=== PATIENT | male | born 1945 | race Caucasian/White ===

== ENCOUNTER 2021-05-15 12:40 | Emergency (ER) | payer SELFPAY ==
[~2021-05-15] VITALS: Ht 182.9 cm; Wt 84.0 kg
[2021-05-15] MEDS ORDERED: niCARdipine INJ. IV ONE (12:58)
[2021-05-15] MEDS ORDERED: IV NORMAL SALINE 250ML 250 ML ONE (12:59)
[2021-05-15] MEDS ORDERED: VECURONIUM 10 MG VIAL. IV ONE (13:00)
[2021-05-15] MEDS ORDERED: SUCCINYLCHOLINE 200 MG/10 ML VIAL. ONE ×2 (13:00→13:08)
[2021-05-15] MEDS ORDERED: ETOMIDATE 40 MG/20 ML VIAL. ONE (13:00)
[2021-05-15] MEDS ORDERED: MIDAZOLAM HCL PF 5 MG/5 ML VIAL. ONE (13:00)
--- NOTE | 2021-05-15 13:06 | RAD ---
CT scan of the head without contrast 05/15/2021 Clinical History: Altered mental status. Technique: Unenhanced, contiguous, 5 mm axial sections were obtained through the head. One or more of the following individualized dose reduction techniques were utilized for this study: 1. Automated exposure control. 2. Adjustment of the mA and/or kV according to patient size. 3. Use of iterative reconstruction technique. Findings: There is generalized parenchymal atrophy. Areas of decreased attenuation are seen within t he periventricular and subcortical white matter of both cerebral hemispheres consistent with areas of small vessel ischemic disease. An acute parenchymal hematoma is seen involving the midline cerebellu m, left greater than right. This measures 6 cm in greatest diameter. There is surrounding edema and a ssociated mass effect. Acute interventricular hemorrhage is seen within the third ventricle, aqueduct of Sylvius and fourth ventricle. No hydrocephalus is seen at this time. No extra-axial fluid collect ion is noted. No skull fracture is seen. IMPRESSION: 6 cm acute hematoma is seen involving the cerebellum, left greater than right. There is s urrounding edema and associated mass effect. Acute intraventricular hemorrhage is seen involving the third ventricle, aqueduct of Sylvius and fourth ventricle. No hydrocephalus is seen at this time. These findings were discussed with Dr. Dupont. FOR INTERNAL CODING PURPOSES RESULT CODE: (C) Electronically signed by: Rajiv Davey MD (05/15/2021 1:04 PM) [id number]
[2021-05-15 13:08] LABS: BASO % 0 % (0-3); EOS # 0.1 x10^3/uL (0.0-0.7); EOS % 1 % (0-3); HEMATOCRIT 43.6 % (39.0-53.0); HEMOGLOBIN 14.8 g/dL (13.0-17.5); LYMPH # 1.3 x10^3/uL (1.0-4.8); LYMPH % 9 % (24-48); MEAN CORPUSCULAR HEMOGLOBIN 30 pg (25-35); MEAN CORPUSCULAR HGB CONC 34 g/dL (31-37); MEAN CORPUSCULAR VOLUME 90 fL (79-100); MONO % 8 % (0-9); NEUT # 11.2 x10^3uL (1.8-7.7); NEUT % 82 % (31-73); PLATELET COUNT 188 x10^3/uL (140-400); RED BLOOD COUNT 4.87 x10^6/uL (4.30-5.70); RED CELL DISTRIBUTION WIDTH 13.5 % (11.5-14.5); WHITE BLOOD COUNT 13.6 x10^3/uL (4.0-11.0)
--- NOTE | 2021-05-15 13:11 | RAD ---
CT scan of the cervical spine without contrast 05/15/2021 Clinical history: Neck injury. Technique: Unenhanced, contiguous, 0.625 mm axial sections were obtained through the cervical spine. 2 mm reconstructed axial and 2 mm coronal and sagittal reconstructed images were obtained. One or more of the following individualized dose reduction techniques were utilized for this study: 1. Automated exposure control. 2. Adjustment of the mA and/or kV according to patient size. 3. Use of iterative reconstruction technique. Findings: Sagittal and coronal reconstructed images demonstrate mild lateral curvature of the cervica l spine, convex to the right. There is straightening of the normal cervical lordosis. Degenerative ch anges consisting of varying degrees of disc space narrowing, vertebral endplate sclerosis and minimal to mild anterior and posterior vertebral body osteophyte formation are seen throughout the cervical disc spaces. No fracture or subluxation of the cervical vertebrae is seen. Degenerative changes are seen involving the uncovertebral and facet joints throughout the cervical disc spaces. Atherosclerotic calcificatio n is seen in the region of the carotid bifurcations. Impression: No fracture or subluxation of the cervical vertebra is identified. Electronically signed by: Rajiv Davey MD (05/15/2021 1:09 PM) [id number]
[2021-05-15 13:15] LABS: CALCIUM 8.9 mg/dL (8.5-10.1); CREATININE 0.8 mg/dL (0.7-1.3); GFR 94.2
[2021-05-15 13:22] LABS: ALBUMIN 3.4 g/dL (3.4-5.0); ALBUMIN/GLOBULIN RATIO 0.8 (1.0-1.7); TOTAL BILIRUBIN 0.6 mg/dL (0.2-1.0); TOTAL PROTEIN 7.6 g/dL (6.4-8.2)
--- NOTE | 2021-05-15 13:31 | RAD ---
AP chest. HISTORY: Intubation AP view was taken of the chest. Endotracheal tube is in good position. NG tube extends into the stoma ch. There is a left pacemaker with atrial ventricular pacing leads without change. No acute infiltrat es are noted. IMPRESSION: 1. Endotracheal tube in good position. 2. NG tube extends into the stomach. 3. Left pacemaker with atrial ventricular pacing leads. 4. No pneumothorax. 5. No acute infiltrates. Electronically signed by: Billy Forbes MD (05/15/2021 1:29 PM) [facility]
--- NOTE | 2021-05-15 13:46 | PHYS DOC ---
General Adult EDM: Chief Complaint: NEURO SYMPTOMS/DEFICITS HPI: HPI: Patient is a 75-year male brought in by EMS for possible code stroke. Patient had a fall at 10 AM while he was trying to get into his chair and hit his head on the wall. Patient had no loss of consciousness and was okay at that time, f helena started noticing him with altered mental status and slurred speech at approximately 1150. Patient was brought in and per report is not on blood thinners, had a recent CVA. Other history unknown. Review of Systems: Review of Systems: Unable to obtain due to patient mental status Current Medications: Current Meds: Current Medications Medications (Trade) Dose Ordered Sig/Courtney Start Time Stop Time Status Last Admin Dose Admin Nicardipine HCl (Cardene) 25 mg STK-MED ONCE 05/15/21 12:58 05/15/21 12:58 DC Nicardipine HCl 50 mg/Sodium Chloride 250 ml @ 25 mls/hr CONT PRN 05/15/21 13:00 UNV Sodium Chloride 250 ml @ As Directed STK-MED ONCE 05/15/21 12:59 05/15/21 12:59 DC Succinylcholine Chloride (Anectine) 200 mg STK-MED ONCE 05/15/21 13:08 05/15/21 13:08 DC Allergies: Allergies: Allergies Coded Allergies Type Severity Reaction Last Updated Verified Unable to Assess 05/15/21 No Physical Exam: PE: Constitutional: Well developed, well nourished, ill-appearing HENT: Normocephalic, atraumatic, bilateral external ears normal, nose normal. [] Eyes: PERRLA, conjunctiva normal, no discharge. Pupils pinpoint [] Neck: No rigidity, supple, no stridor. C-collar placed on arrival [] Cardiovascular: Regular rate and rhythm, brisk cap refill [] Lungs & Thorax: Non labored symmetric respirations, no tachypnea or respiratory distress [] Abdomen: Soft, nondistended. Skin: Warm, dry, no erythema, no rash. [] Back: Unremarkable Extremities: No deformities, range of motion grossly intact, no lower extremity edema [] Neurologic: GCS 7, eyes 1, verbal 1, motor 5. Patient not following commands, holding forehead with his hand. Moves all extremities Psychologic: Affect normal, judgement normal, mood normal. [] Current Patient Data: Labs: Laboratory Tests Test 05/15/21 12:52 05/15/21 12:55 White Blood Count 13.6 x10^3/uL (4.0-11.0) H Red Blood Count 4.87 x10^6/uL (4.30-5.70) Hemoglobin 14.8 g/dL (13.0-17.5) Hematocrit 43.6 % (39.0-53.0) Mean Corpuscular Volume 90 fL (79-100) Mean Corpuscular Hemoglobin 30 pg (25-35) Mean Corpuscular Hemoglobin Concent 34 g/dL (31-37) Red Cell Distribution Width 13.5 % (11.5-14.5) Platelet Count 188 x10^3/uL (140-400) Neutrophils (%) (Auto) 82 % (31-73) H Lymphocytes (%) (Auto) 9 % (24-48) L Monocytes (%) (Auto) 8 % (0-9) Eosinophils (%) (Auto) 1 % (0-3) Basophils (%) (Auto) 0 % (0-3) Neutrophils # (Auto) 11.2 x10^3uL (1.8-7.7) H Lymphocytes # (Auto) 1.3 x10^3/uL (1.0-4.8) Monocytes # (Auto) 1.0 x10^3/uL (0.0-1.1) Eosinophils # (Auto) 0.1 x10^3/uL (0.0-0.7) Basophils # (Auto) 0.0 x10^3/uL (0.0-0.2) Prothrombin Time 10.7 SEC (9.4-11.4) Prothrombin Time INR 1.0 (0.9-1.1) Sodium Level 139 mmol/L (136-145) Potassium Level 4.0 mmol/L (3.5-5.1) Chloride Level 104 mmol/L (98-107) Carbon Dioxide Level 25 mmol/L (21-32) Anion Gap 10 (6-14) Blood Urea Nitrogen 18 mg/dL (8-26) Creatinine 0.8 mg/dL (0.7-1.3) Estimated GFR (Cockcroft-Gault) 94.2 BUN/Creatinine Ratio 23 (6-20) H Glucose Level 192 mg/dL (70-99) H Calcium Level 8.9 mg/dL (8.5-10.1) Total Bilirubin 0.6 mg/dL (0.2-1.0) Aspartate Amino Transferase (AST) 22 U/L (15-37) Alanine Aminotransferase (ALT) 30 U/L (16-63) Alkaline Phosphatase 145 U/L (46-116) H Total Protein 7.6 g/dL (6.4-8.2) Albumin 3.4 g/dL (3.4-5.0) Albumin/Globulin Ratio 0.8 (1.0-1.7) L Glucose (Fingerstick) 196 mg/dL (70-99) H Vital Signs: Vital Signs Date Time Temp Pulse Resp B/P (MAP) Pulse Ox O2 Delivery O2 Flow Rate FiO2 05/15/21 12:54 62 22 207/122 (150) 99 Room Air 05/15/21 12:50 98.3 EKG: EKG: Sinus rhythm with occasional PVCs and PACs, no ST elevation or depression, normal axis. [] Radiology/Procedures: Radiology/Procedures: [place] [address] IMAGING REPORT Signed PATIENT: BE MIGUEL ACCOUNT: [id number] : 1945 LOCATION: ER AGE: 75 SEX: M EXAM STATUS: REG ER ORD. PHYSICIAN: DESHAWN COYNE MD REASON: altered mental status PROCEDURE: CT CODE STROKE HEAD WO CT scan of the head without contrast 05/15/2021 Clinical History: Altered mental status. Technique: Unenhanced, contiguous, 5 mm axial sections were obtained through the head. One or more of the following individualized dose reduction techniques were utilized for this study: 1. Automated exposure control. 2. Adjustment of the mA and/or kV according to patient size. 3. Use of iterative reconstruction technique. Findings: There is generalized parenchymal atrophy. Areas of decreased attenuation are seen within the periventricular and subcortical white matter of both cerebral hemispheres consistent with areas of small vessel ischemic disease. An acute parenchymal hematoma is seen involving the midline cerebellum, left greater than right. This measures 6 cm in greatest diameter. There is surrounding edema and associated mass effect. Acute interventricular hemorrhage is seen within the third ventricle, aqueduct of Sylvius and fourth ventricle. No hydrocephalus is seen at this time. No extra-axial fluid collection is noted. No skull fracture is seen. IMPRESSION: 6 cm acute hematoma is seen involving the cerebellum, left greater than right. There is surrounding edema and associated mass effect. Acute intraventricular hemorrhage is seen involving the third ventricle, aqueduct of Sylvius and fourth ventricle. No hydrocephalus is seen at this time. These findings were discussed with Dr. Coyne. FOR INTERNAL CODING PURPOSES RESULT CODE: (C) Electronically signed by: Rajiv Davey MD (05/15/2021 1:04 PM) [id number] DICTATED AND SIGNED BY: RAJIV DAVEY MD DATE: 05/15/21 1250 CC: LUBNA ABDALLA; DESHAWN COYNE MD ~MTH0 0 [][address] [address] IMAGING REPORT Signed PATIENT: BE MIGUEL ACCOUNT: [id number] : 1945 LOCATION: ER AGE: 75 SEX: M EXAM STATUS: REG ER ORD. PHYSICIAN: DESHAWN COYNE MD REASON: intubation PROCEDURE: CHEST AP ONLY AP chest. HISTORY: Intubation AP view was taken of the chest. Endotracheal tube is in good position. NG tube extends into the stomach. There is a left pacemaker with atrial ventricular pacing leads without change. No acute infiltrates are noted. IMPRESSION: 1. Endotracheal tube in good position. 2. NG tube extends into the stomach. 3. Left pacemaker with atrial ventricular pacing leads. 4. No pneumothorax. 5. No acute infiltrates. Electronically signed by: Billy Forbes MD (05/15/2021 1:29 PM) [facility] DICTATED AND SIGNED BY: BILLY FORBES MD DATE: 05/15/21 132 CC: LUBNA ABDALLA; DESHAWN COYNE MD ~MTH0 [address] [address] IMAGING REPORT Signed PATIENT: BE MIGUEL ACCOUNT: [id number] : 1945 LOCATION: ER AGE: 75 SEX: M EXAM STATUS: REG ER ORD. PHYSICIAN: DESHAWN COYNE MD REASON: altered mental status PROCEDURE: CT CERVICAL SPINE WO CONTRAST CT scan of the cervical spine without contrast 05/15/2021 Clinical history: Neck injury. Technique: Unenhanced, contiguous, 0.625 mm axial sections were obtained through the cervical spine. 2 mm reconstructed axial and 2 mm coronal and sagittal reconstructed images were obtained. One or more of the following individualized dose reduction techniques were utilized for this study: 1. Automated exposure control. 2. Adjustment of the mA and/or kV according to patient size. 3. Use of iterative reconstruction technique. Findings: Sagittal and coronal reconstructed images demonstrate mild lateral curvature of the cervical spine, convex to the right. There is straightening of the normal cervical lordosis. Degenerative changes consisting of varying degrees of disc space narrowing, vertebral endplate sclerosis and minimal to mild anterior and posterior vertebral body osteophyte formation are seen throughout the cervical disc spaces. No fracture or subluxation of the cervical vertebrae is seen. Degenerative changes are seen involving the uncovertebral and facet joints throughout the cervical disc spaces. Atherosclerotic calcification is seen in the region of the carotid bifurcations. Impression: No fracture or subluxation of the cervical vertebra is identified. Electronically signed by: Rajiv Davey MD (05/15/2021 1:09 PM) [id number] DICTATED AND SIGNED BY: RAJIV DAVEY MD DATE: 05/15/21 1304 CC: LUBNA ABDALLA; DESHAWN COYNE MD ~MTH0 0 Heart Score: C/O Chest Pain: N/A Risk Factors: Risk Factors: DM, Current or recent (<one month) smoker, HTN, HLP, family history of CAD, obesity. Risk Scores: Score 0 - 3: 2.5% MACE over next 6 weeks - Discharge Home Score 4 - 6: 20.3% MACE over next 6 weeks - Admit for Clinical Observation Score 7 - 10: 72.7% MACE over next 6 weeks - Early Invasive Strategies Course & Med Decision Making: Course & Med Decision Making [facility] contacted for patient transfer. Patient to be flown to with accepting Dr. Montes. Further transfer line he was discharged in July, are EMS report was he is not on blood thinners. Unable to reach family for confirmation. Attempted to contact our local EMS but they said they did not have any contact information for who called EMS. Patient is hypertensive with systolics in the 200s diastolics in the 100s. Started on nicardipine drip and aggressive blood pressure management. Patient intubated for airway protection due to low GCS and impending respiratory failure due to size of bleed. Total critical care time: 65 The time involved in the performance of separately reportable/billable procedures was not counted toward critical care time. Due to a high probability of clinically significant, life-threatening deterioration the patient required a high level of care to intervene emergently and I personally spent this critical time directly and personally managing the patient. The critical care time included obtaining a history, examination of the patient, assessment of vital signs, ordering and review of studies, arranging urgent treatment with development of a management plan, evaluation of patient's response to treatment, frequent reassessment, and discussions with other providers and/or family members. Patient was intubated in emergent fashion and no consent was obtained. Patient was [] sedated and paralyzed with etomidate and succinylcholine. A glide scope with a size 4 blade was used, cords were visualized and a size 7.5 endotracheal tube was placed during first attempt. Endotracheal tube cuff was inflated and confirmation established by visualization of the cords passing the tubes, bilateral breath sounds, color change, and chest x-ray. Dragon Disclaimer: Dragon Disclaimer: This electronic medical record was generated, in whole or in part, using a voice recognition dictation system. Departure Departure: Impression: Primary Impression: Intraventricular hemorrhage Disposition: 02 SHORT TERM HOSPITAL Condition: CRITICAL Referrals: LUBNA ABDALLA (PCP) DESHAWN COYNE MD May 15, 2021 13:46
[2021-05-15 14:13] VITALS: BP 174/106
--- NOTE | 2021-05-15 14:35 | EKG ---
[address] [address] Test Date: 2021-05-15 Test Time: 12:55:34 Pat Name: BE MIGUEL Department: Room: Gender: M Contemporary Or Modern Dancer: BRYAN : 1945 Requested By: DESHAWN COYNE Order Number: [id number] Reading MD: Victor Manuel Orellana MD Measurements Intervals [place] Rate: 64 P: -69 OR: 100 QRS: 31 QRSD: 100 T: 69 QT: 478 QTc: 498 Interpretive Statements A-PACED PVC Electronically Signed On 05-17-2021 11:00:23 CDT by Victor Manuel Orellana MD
== END 2021-05-15 13:40 | disposition short-term general hospital (02) ==
LOC: ER 12:40
DX: S06.370A Contusion, laceration, and hemorrhage of cerebellum without loss of consciousness, initial encounter (principal); R41.82 Altered mental status, unspecified; Z20.822 Contact with and (suspected) exposure to COVID-19; W07.XXXA Fall from chair, initial encounter; Y93.89 Activity, other specified; Y92.89 Other specified places as the place of occurrence of the external cause; Y99.8 Other external cause status
CPT/HCPCS: 36415; 70450; 71045; 72125; 80053; 82947; 85025; 85610; 87426; 93005; 99291; J0330; J2250